=== PATIENT | female | born 1945 | race Caucasian/White ===

== ENCOUNTER 2016-09-15 10:36 | Emergency (ER) | payer MEDICARE, MEDICAID ==
[2016-09-15 11:24] VITALS: BMI 43.2
[2016-09-15] MEDS ORDERED: SODIUM CHLORIDE 0.9% 3 ML FLUSH FLUSH PRN (12:40)
[2016-09-15] MEDS ORDERED: HYDROmorphone 1 MG INJECTION IV ONE ×3 (12:41→13:37)
[2016-09-15] MEDS ORDERED: ONDANSETRON HCL 4 MG/2 ML VIAL IV ONE (12:41)
--- NOTE | 2016-09-15 12:57 | EDPRACDOC ---
- General Information Information Source: Patient Mode Of Arrival: Ambulance - History of Present Illness Onset: SATURDAY HPI: PT STATES SHE HAD BACK SURGERY ON SATURDAY AT [facility] [place] BY DR. GARCIA AND HAS BEEN HAVING INCREASED PAIN SINCE THEN. SHE ALSO STATES THAT WHEN SHE URINATES IT FEEL FUNNY AND SHE HAS BEEN HAVING URGENCY TO THE POINT SHE URINATES ON HERSELF BEFORE SHE GETS TO THE BATHROOM. PT STATES SHE CANT GET UP AND DOWN DUE TO THE PAIN IN HER BACK AND IS ALSO C/O MUSCLE SPASMS IN LOWER BACK AND LEGS. NO LOSS OF CONTROL OF BOWELS AT THIS TIME. NO FEVERS OR CHILLS. PT STATES SHE DID NOT HAVE HARDWARE PLACED OR DISC REMOVAL, HAD BULGING DISC CLEANED UP AND SPINAL STENOSIS CLEANED OUT. PT STATES SHE WAS SEEN AT [facility] YESTERDAY AND THEY GAVE HER A SHOT OF PAIN MEDS AND SENT HER HOME. Pain Location: Reports: Bilateral, Lumbar Pain Radiates To: Reports: Thigh, Buttock Pain Caused By: Reports: Spontaneous (AFTER SURGERY) Circumstances: Reports: Other (BACK SURGERY SATURDAY AT [facility] [place], [facility] (DR. GARCIA)) Relevant History: Reports: Chronic back pain (WITH RECENT SURGERY) Pain Severity: Reports: Severe Pain Quality: Reports: Aching, Dull, Sharp Worsened By: Reports: Movement, Twisting, Walking Associated Signs and Symptoms: Reports: Dysuria <Krupa Hurley - Last Filed: 09/15/16 15:51> <Modesto Ram - Last Filed: 09/15/16 16:21> - General Information Chief Complaint: Back Pain Stated Complaint: BACK PAIN Time Seen by Provider: 09/15/16 12:31 Home Medications: Home Medications Amlodipine [Norvasc] 10 mg PO DAILY 11/01/12 Aspirin 81 mg PO DAILY 11/01/12 Cetirizine HCl [Zyrtec] 10 mg PO DAILY 11/01/12 Dorzolamide HCl [Trusopt] 1 drops OU BID 11/01/12 Escitalopram Oxalate [Lexapro] 20 mg PO DAILY 11/01/12 Esomeprazole Mag Trihydrate [Nexium] 40 mg PO DAILY 11/01/12 Metformin HCl [Metformin HCl ER] 500 mg PO BID 11/01/12 Metoprolol Succinate (XL) [Toprol Xl] 75 mg PO DAILY 11/01/12 Cyclosporine [Restasis (0.05%)] 1 drop OU BID 05/31/13 Losartan Potassium 100 mg PO DAILY 05/31/13 Modafinil [Provigil] 200 mg PO DAILY 05/31/13 Amoxicillin 875 mg PO BID 09/15/16 Fluticasone Propionate [Flonase] 2 spray BENNY DAILY 09/15/16 Gabapentin [Neurontin] 600 mg PO TID 09/15/16 Glimepiride [Amaryl] 2 mg PO DAILY 09/15/16 Hydrocodone Bit/Acetaminophen [[place] 5-325 Tablet] 1 tab PO Q6H PRN 09/15/16 Oxycodone HCl/Acetaminophen [Percocet 7.5-325 mg Tablet] 1 tab PO Q4-6H PRN 11/26 Pantoprazole Sodium [Protonix] 40 mg PO DAILY 09/15/16 Ropinirole HCl [Requip] 1 mg PO QHS 09/15/16 Sitagliptin Phosphate [Januvia] 100 mg PO DAILY 09/15/16 Allergies/Adverse Reactions: Allergies Allergy/AdvReac Type Severity Reaction Status Date / Time codeine Allergy Nausea/Vomi Verified 09/15/16 11:24 ting hydrochlorothiazide Allergy Unknown Verified 09/15/16 11:24 NSAIDS (Non-Steroidal Allergy Bleeding Verified 09/15/16 11:24 Anti-Inflamma Yjzoamr-Jlr-Xhl Reductase Allergy See Verified 09/15/16 11:24 Inhibitor Comments ED Past Medical History - History Reviewed Yes Nurses notes reviewed and agree except as marked Travel Outside of [place] in the Last 3 Months?: No - Patient Medical History Neurological History: Reports: Dementia (SHORT TERM MEMORY LOSS). Denies: Seizures Cardiac History: Reports: Coronary Artery Disease (36% OCCLUSION RCA 2012), Hypertension, Cardiac Catheterization (2012), Hypercholesterolemia, Syncope ( VAGAL RESPONSE 2012) Respiratory History: Reports: Asthma, COPD, Pneumonia GI/ History: Reports: Urinary Tract Infection, Gastroesophageal Reflux, Ulcer Musculoskeletal History: Reports: Arthritis, Gout Psychological History: Reports: Depression, Anxiety Systemic History: Reports: Cancer, Anemia, Diabetes Surgical History: Reports: Hysterectomy, Cardiac Catheterization (2012), Hernia Surgery (ABDOMINAL REPAIR >5 YEARS) - Family Medical History Reports: Hypertension, Diabetes, Stroke, Cardiac Disorders. Denies: Cancer - Social Medical History Smoking Status: Former smoker ETOH: None Substance Abuse: None Lives With: Other Lives In: Home <Cook,J Rustam - Last Filed: 09/15/16 15:51> EDM Review of Systems - Review of Systems ROS Negative Except as Marked: Yes All systems reviewed and were negative except as marked Constitutional: No Symptoms Reported. negative: Fever, Chills, Weakness, Fatigue, Loss of Appetite Eyes: No Symptoms Reported. negative: Redness, Blurred Vision, Double Vision, Discharge, Pain, Light Sensitive, Photophobia Ears: No Symptoms Reported. negative: Pain, Hearing Loss, Drainage, Ear Pulling Throat: No Symptoms Reported. negative: Pain, Swelling Nose: No Symptoms Reported. negative: Congestion, Bleeding, Discharge, Injection, Swelling, Deformity, Ecchymosis, Tender, Abrasion, Laceration Mouth: No Symptoms Reported. negative: Pain, Drooling Respiratory: No Symptoms Reported. negative: Cough, Brassy Cough, Barky Cough, Shortness of Breath, Wheezing, Hemoptysis Cardiovascular: No Symptoms Reported. negative: Chest Pain, Palpitations, Syncope, Edema, Orthopnea, PND, Skin Mottling, Cyanosis Gastrointestinal: No Symptoms Reported. negative: Pain, Constipation, Nausea, Vomiting, Diarrhea, Melena, Formula Intolerance Genitourinary: No Symptoms Reported. negative: Dysuria, Hematuria, Frequency, Discharge, Bleeding, Testicular Pain, Neurological: No Symptoms Reported. negative: Headache, Dizziness, Seizure, Numbness, Weakness, Speech Difficulty, Gait Difficulty Musculoskeletal: Back (LOW). negative: Arm, Ankle, Chestwall, Elbow, Forearm, Femur, Foot, Hand, Hip, Knee, Leg, Neck, Pelvis, Ribs, Shoulder, Wrist Integumentary: No Symptoms Reported. negative: Itching, Rash, Bruising, Wound Allergic/Immunologic: No Symptoms Reported. negative: Hives, Itching Hematologic: No Symptoms Reported. negative: Lymphadenopathy, Easy Bruising, Easy Bleeding Endocrine: No Symptoms Reported. negative: Weight Gain, Weight Loss Psychiatric: No Symptoms Reported. negative: Anxiety, Depression, Hallucinations, Insomnia, Suicidal <Krupa Hurley - Last Filed: 09/15/16 15:51> - Physical Exam Constitutional: Alert (Awake, UNCOMFORTABLE) Oriented to: Time, Person, Place Last recorded Vital Signs: Last Vital Signs Temp 98.6 F 09/15/16 11:21 Pulse 87 02/04/17 12:33 Resp 18 09/15/16 12:33 BP 171/86 09/15/16 12:33 Pulse Ox 94 09/15/16 12:33 Oxygen Pulse Oxygen Saturation 94 O2 Device Room Air Oxygen Flow Rate Fraction of Inspired Oxygen ( FIO2) - HEENT Head: Normal ( normocephalic) Eye Exam: Normal (PERRL, EOMI, Sclera white) Oropharynx: Normal (Pharynx:Moist without exudate,Gums-no swelling) Tympanic Membrane: Normal ENT EAC: Normal TMJ: Normal Nose: No Symptoms Reported (septum midline) Neck: Normal (FROM, trachea at midline) - Respiratory/Cardiovascular Respiratory: Normal - CTA (BBS clear to auscultation without adventitious sounds ) Cardiovascular: Normal (RRR without murmur, gallop or rub) - GI Auscultation: Normal (NABS) Palpation: Normal (Soft,No rebound or guarding, non distended) Tenderness: Non tender Delgado's Sign: Negative - Bladder: Normal - Musculoskeletal Back: Normal (Non-Tender) Extremities: Normal (Normal tone, Pulses 2+ No cyanosis or edema, FROM) Musculoskeletal Comment: BACK PAIN INCREASED AFTER SURGERY SATURDAY AT [facility] [place], [facility] - Integumentary Skin: Normal, Warm, Dry Lymphatics: Normal (no adenopathy) - Neurologic Memory Impaired: Normal Motor Function: Normal (Normal tone, Pulses 2+ No cyanosis or edema, FROM) Cranial Nerve: Normal (CN II-X11 intact sensation, strength 5/5) Cerebellar: Normal Mood Description: Normal Perception: Normal <Krupa Hurley - Last Filed: 09/15/16 15:51> - Physical Exam Last recorded Vital Signs: Last Vital Signs Temp 98.6 F 09/15/16 11:21 Pulse 78 09/15/16 15:45 Resp 18 09/15/16 15:45 BP 162/68 09/15/16 15:45 Pulse Ox 99 09/15/16 15:45 Oxygen Pulse Oxygen Saturation 99 O2 Device Nasal Cannula Oxygen Flow Rate 2 Fraction of Inspired Oxygen ( FIO2) <Modesto Ram - Last Filed: 09/15/16 16:21> ED Back Exam - Neurologic Motor Deficit: None Reflexes: Normal - Musculoskeletal Cervical: Normal Thoracic: Normal Lumbar: Tender Midline: Tender Paraspinous: Tender, Spasm, Limited ROM Straight Leg Raise: Negative Pelvis: Normal <Krupa Hurley - Last Filed: 09/15/16 15:51> - Differential Diagnosis Musculoskeletal pain, Other (POST OP COMPLICATION FROM BACK SURGERY, POST OP PAIN. ), Strain - Results 09/15/16 13:00 09/15/16 13:00 - Diagnostic Imaging CT LUMBAR SPINE Image interpreted by: Radiologist : 1945 AGE: 71 Order Date:09/15/16 Date of Service: 09/15/16 Report # [id number] Ord Physician: Krupa Hurley Exam # [id number] Emergency Physician: Modesto Ram DO Exam(s): [id number] CT/CT L SPINE W/O CM CLINICAL DATA: 71-year-old female with increased lumbar back pain after surgery 2 days ago. Initial encounter. EXAM: CT LUMBAR SPINE WITHOUT CONTRAST TECHNIQUE: Multidetector CT imaging of the lumbar spine was performed without intravenous contrast administration. Multiplanar CT image reconstructions were also generated. COMPARISON: [facility] lumbar MRI 08/28/2016. [facility] CT Abdomen and Pelvis 06/21/2016. Lumbar radiographs 04/06/2016. FINDINGS: Same numbering system as on 08/28/2016 designating normal lumbar segmentation, which is confirmed on these images. Large body habitus. Mild osteopenia. Aside from the postoperative changes at L4-L5 described below, no acute osseous abnormality is identified. Stable vertebral height and alignment. Visible sacrum and SI joints intact. Aortoiliac calcified atherosclerosis noted. Stable visualized abdominal viscera. No retroperitoneal stranding or gas. The levels T11-T12 through L1-L2 appear stable from prior studies. L2-L3: Bulky right eccentric disc osteophyte complex and up to severe right facet hypertrophy re - demonstrated. Trace probably posterior epidural space gas likely is postoperative (series 4, image 50). Underlying right lateral recess stenosis at this level. L3-L4: Moderate to severe facet hypertrophy. Circumferential disc bulge. Posterior epidural lipomatosis. This level appears stable. L4-L5: Interval subtotal laminectomy. Fluid is evident in the decompression bed (series 4, image 73), and might be exerting mass effect on the thecal sac here, uncertain disc bulge and endplate spurring with. Underlying circumferential severe residual facet hypertrophy. No postoperative gas at this level. There is overlying edema of the left erector spinae muscle which might simply be postoperative. L5-S1: Stable left eccentric disc osteophyte complex and moderate to severe facet hypertrophy. IMPRESSION: 1. Interval subtotal laminectomy at L4-L5 primarily on the left. Postoperative fluid in the laminectomy space is evident and might be exerting mass effect on the thecal sac, uncertain. Lumbar MRI (preferably without and with contrast) would evaluate further. 2. Trace likely postoperative epidural gas at the L2-L3 level. 3. Otherwise stable lumbar spine. <Krupa Hurley - Last Filed: 09/15/16 15:51> - Results 09/15/16 13:00 09/15/16 13:00 WBC 13.5 xk/uL (3.8-10.8) H 09/15/16 13:00 RBC 4.16 xM/uL (4.20-5.40) L 09/15/16 13:00 Hgb 12.4 g/dL (12.0-16.0) 09/15/16 13:00 Hct 37.0 % (36-47) 09/15/16 13:00 MCV 89 fL (81-99) 09/15/16 13:00 MCH 29.9 pg (27-32) 09/15/16 13:00 MCHC 33.7 g/dl (33-36) 09/15/16 13:00 RDW 13.5 % (11.5-14.5) 09/15/16 13:00 Plt Count 210 xk/uL (130-400) 09/15/16 13:00 MPV 8.2 fL (7.4-10.4) 09/15/16 13:00 Neut % (Auto) 64.7 % (45-76) 09/15/16 13:00 Lymph % (Auto) 22.3 % (17-44) 09/15/16 13:00 [place] % (Auto) 9.8 % (3-10) 09/15/16 13:00 Eos % (Auto) 2.7 % (0-5) 09/15/16 13:00 Baso % (Auto) 0.5 % (0-2) 09/15/16 13:00 Absolute Neuts (auto) 8.64 xk/uL (1.7-8.2) H 09/15/16 13:00 Absolute Lymphs (auto) 2.97 xk/uL (0.65-4.75) 09/15/16 13:00 Sodium 136 mEq/L (137-146) L 09/15/16 13:00 Potassium 4.3 mEq/L (3.5-5.1) 09/15/16 13:00 Chloride 100 mEq/L (98-107) 09/15/16 13:00 Carbon Dioxide 28 mMOL/L (22-33) 09/15/16 13:00 Anion Gap 12 mEq/L (8-16) 09/15/16 13:00 BUN 9 MG/DL (7-17) 09/15/16 13:00 Creatinine 0.60 MG/DL (0.52-1.04) 09/15/16 13:00 Estimated GFR (MDRD) > 60 mL/min (>=60) 09/15/16 13:00 Glucose 149 mg/dL (70-99) H 09/15/16 13:00 Calculated Osmolality 264 MOs/Kg (270-290) L 09/15/16 13:00 Calcium 9.6 MG/DL (8.4-10.2) 09/15/16 13:00 Total Bilirubin 0.7 MG/DL (0.2-1.3) 09/15/16 13:00 AST 47 IU/L (14-36) H 09/15/16 13:00 ALT 102 IU/L (9-52) H 09/15/16 13:00 Alkaline Phosphatase 77 IU/L (55-165) 09/15/16 13:00 Total Protein 7.8 G/DL (6.3-8.2) 09/15/16 13:00 Albumin 4.1 G/DL (3.5-5.0) 09/15/16 13:00 Urine Color Yellow 09/15/16 13:50 Urine Clarity Clear 09/15/16 13:50 Urine pH 5.0 (5.0-8.0) 09/15/16 13:50 Ur Specific [place] 1.015 (1.003-1.035) 09/15/16 13:50 Urine Protein Neg (NEG/TRACE) 09/15/16 13:50 Urine Glucose (UA) Neg (NEGATIVE) 09/15/16 13:50 Urine Ketones Neg (NEGATIVE) 09/15/16 13:50 Urine Occult Blood Neg (NEG/TRACE) 09/15/16 13:50 Urine Nitrite Neg (NEGATIVE) 09/15/16 13:50 Urine Bilirubin Neg (NEGATIVE) 09/15/16 13:50 Urine Urobilinogen <2.0 MG/DL (0-1) 09/15/16 13:50 Ur Leukocyte Esterase Neg (NEGATIVE) 09/15/16 13:50 Urine RBC 0-2 (0-5) 09/15/16 13:50 Urine WBC 0-2 (0-5) 09/15/16 13:50 Urine Mucus Occ (NEG/OCC) 09/15/16 13:50 Lab Results 09/15/16 09/15/16 09/15/16 13:50 13:00 13:00 WBC 13.5 H RBC 4.16 L Hgb 12.4 Hct 37.0 MCV 89 MCH 29.9 MCHC 33.7 RDW 13.5 Plt Count 210 MPV 8.2 Neut % (Auto) 64.7 Lymph % (Auto) 22.3 [place] % (Auto) 9.8 Eos % (Auto) 2.7 Baso % (Auto) 0.5 Absolute Neuts (auto) 8.64 H Absolute Lymphs (auto) 2.97 Sodium 136 L Potassium 4.3 Chloride 100 Carbon Dioxide 28 Anion Gap 12 BUN 9 Creatinine 0.60 Estimated GFR (MDRD) > 60 Glucose 149 H Calculated Osmolality 264 L Calcium 9.6 Total Bilirubin 0.7 AST 47 H ALT 102 H Alkaline Phosphatase 77 Total Protein 7.8 Albumin 4.1 Urine Color Yellow Urine Clarity Clear Urine pH 5.0 Ur Specific [place] 1.015 Urine Protein Neg Urine Glucose (UA) Neg Urine Ketones Neg Urine Occult Blood Neg Urine Nitrite Neg Urine Bilirubin Neg Urine Urobilinogen <2.0 Ur Leukocyte Esterase Neg Urine RBC 0-2 Urine WBC 0-2 Urine Mucus Occ <Modesto Ram - Last Filed: 09/15/16 16:21> - Departure Disposition: Trans. to Other Hospital ([facility] [place] ED) Education/Counseling Given To: Patient Education/Counseling Given Regarding: Diagnosis, Treatment, Prognosis, Follow Up Decision to Transfer Time: 15:42 - Physician Consulted Other Time Called: 15:30 Provider Called: DR. MCKEON ([facility] [place] ON ORTHO, SEND TO ED WILL EVALUATE THERE) <Krupa Hurley - Last Filed: 09/15/16 15:51> - Departure Yes I personally saw and evaluated the patient. <Modesto Ram - Last Filed: 09/15/16 16:21> - Departure Condition: Stable Final Diagnosis: INTRACTABLE POST OPERATIVE PAIN Fluid collection at surgical site Qualifiers: Encounter type: initial encounter Qualified Code(s): T88.8XXA - Other specified complications of surgical and medical care, not elsewhere classified, initial encounter Instructions: Acute Low Back Pain (ED) Referrals: None,No Provider [Primary Care Provider] - One Week Prescriptions: No Action Metoprolol Succinate (XL) [Toprol Xl] 75 mg PO DAILY Metformin HCl [Metformin HCl ER] 500 mg PO BID Esomeprazole Mag Trihydrate [Nexium] 40 mg PO DAILY Escitalopram Oxalate [Lexapro] 20 mg PO DAILY Dorzolamide HCl [Trusopt] 1 drops OU BID Cetirizine HCl [Zyrtec] 10 mg PO DAILY Aspirin 81 mg PO DAILY Amlodipine [Norvasc] 10 mg PO DAILY Cyclosporine [Restasis (0.05%)] 1 drop OU BID Modafinil [Provigil] 200 mg PO DAILY Losartan Potassium 100 mg PO DAILY Sitagliptin Phosphate [Januvia] 100 mg PO DAILY Ropinirole HCl [Requip] 1 mg PO QHS Pantoprazole Sodium [Protonix] 40 mg PO DAILY Oxycodone HCl/Acetaminophen [Percocet 7.5-325 mg Tablet] 1 tab PO Q4-6H PRN PRN Reason: Pain Hydrocodone Bit/Acetaminophen [[place] 5-325 Tablet] 1 tab PO Q6H PRN PRN Reason: Pain Glimepiride [Amaryl] 2 mg PO DAILY Gabapentin [Neurontin] 600 mg PO TID Fluticasone Propionate [Flonase] 2 spray BENNY DAILY Amoxicillin 875 mg PO BID
[2016-09-15 13:13] LABS: AUTOMATED BASOPHIL 0.5 % (0-2); AUTOMATED EOSINOPHIL 2.7 % (0-5); AUTOMATED LYMPH 22.3 % (17-44); AUTOMATED MONOCYTE 9.8 % (3-10); AUTOMATED NEUTROPHIL 64.7 % (45-76); MPV 8.2 fL (7.4-10.4)
[2016-09-15] MEDS ORDERED: DIAZEPAM 10 MG/2 ML TUBEX IV ONE (13:17)
[2016-09-15 13:26] LABS: BLOOD UREA NITROGEN 9 MG/DL (7-17); CALCIUM 9.6 MG/DL (8.4-10.2); CALCULATED OSMOLALITY 264 MOs/Kg (270-290); CHLORIDE 100 mEq/L (98-107); GLUCOSE 149 mg/dL (70-99); SODIUM LEVEL 136 mEq/L (137-146); TOTAL PROTEIN 7.8 G/DL (6.3-8.2)
[2016-09-15 14:10] LABS: LEUKOCYTES/URINE NEG (NEGATIVE); NITRITE/URINE NEG (NEGATIVE); RBC/URINE 0-2 (0-5); URINE OCCULT BLOOD NEG (NEG/TRACE); WBC/URINE 0-2 (0-5)
[2016-09-15] MEDS ORDERED: FENTANYL 100 MCG/2 ML VIAL IV ONE (14:21)
--- NOTE | 2016-09-15 14:51 | DIRPT ---
CLINICAL DATA: 71-year-old female with increased lumbar back pain after surgery 2 days ago. Initial encounter. EXAM: CT LUMBAR SPINE WITHOUT CONTRAST TECHNIQUE: Multidetector CT imaging of the lumbar spine was performed without intravenous contrast administration. Multiplanar CT image reconstructions were also generated. COMPARISON: [facility] lumbar MRI 08/28/2016. [facility] CT Abdomen and Pelvis 06/21/2016. Lumbar radiographs 04/06/2016. FINDINGS: Same numbering system as on 08/28/2016 designating normal lumbar segmentation, which is confirmed on these images. Large body habitus. Mild osteopenia. Aside from the postoperative changes at L4-L5 described below, no acute osseous abnormality is identified. Stable vertebral height and alignment. Visible sacrum and SI joints intact. Aortoiliac calcified atherosclerosis noted. Stable visualized abdominal viscera. No retroperitoneal stranding or gas. The levels T11-T12 through L1-L2 appear stable from prior studies. L2-L3: Bulky right eccentric disc osteophyte complex and up to severe right facet hypertrophy re - demonstrated. Trace probably posterior epidural space gas likely is postoperative (series 4, image 50). Underlying right lateral recess stenosis at this level. L3-L4: Moderate to severe facet hypertrophy. Circumferential disc bulge. Posterior epidural lipomatosis. This level appears stable. L4-L5: Interval subtotal laminectomy. Fluid is evident in the decompression bed (series 4, image 73), and might be exerting mass effect on the thecal sac here, uncertain disc bulge and endplate spurring with. Underlying circumferential severe residual facet hypertrophy. No postoperative gas at this level. There is overlying edema of the left erector spinae muscle which might simply be postoperative. L5-S1: Stable left eccentric disc osteophyte complex and moderate to severe facet hypertrophy. IMPRESSION: 1. Interval subtotal laminectomy at L4-L5 primarily on the left. Postoperative fluid in the laminectomy space is evident and might be exerting mass effect on the thecal sac, uncertain. Lumbar MRI (preferably without and with contrast) would evaluate further. 2. Trace likely postoperative epidural gas at the L2-L3 level. 3. Otherwise stable lumbar spine. Electronically Signed By: Luis Angel Vaz M.D. On: 09/15/2016 14:49
[2016-09-15] MEDS ORDERED: MORPHINE 4 MG/ML INJECTION IV ONE (15:40)
[2016-09-15 16:25] VITALS: BP 177/83; PULSE 82; TEMP 99.1
[2016-09-15] MEDS ORDERED: SODIUM CHLORIDE 0.9% 3 ML FLUSH FLUSH SCH (18:00)
== END 2016-09-15 16:14 | disposition short-term general hospital (02) ==
LOC: ED 10:36
DX: G89.18 Other acute postprocedural pain (principal)
CPT/HCPCS: 36415; 72131; 80053; 81001; 85025; 96374; 96375; 96376; 99285; J1170; J2270; J2405; J3010; J3360